=== PATIENT | male | born 1980 | race Hispanic/Latino ===

== ENCOUNTER → 2017-02-16 | Outpatient (CLI) | payer BC | END | disposition home or self-care (01) | LOC: YCFC.O 08:09 | DX: Z00.00 Encounter for general adult medical examination without abnormal findings (principal) ==

== ENCOUNTER → 2019-09-30 | Outpatient (CLI) | payer BC | LOC: YCFC.O 09:24 | PROVIDERS: ATTEND Family Medicine | DX: R06.7 Sneezing (principal) ==